=== PATIENT | female | born 1955 | race Caucasian/White ===

== ENCOUNTER 2021-04-20 16:58 | Emergency (ER) | payer OTHER, MEDICARE ==
[~2021-04-20] VITALS: Ht 165 cm; Wt 90.7 kg
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
[2021-04-20] MEDS ORDERED: HOLD METFORMIN - RECEIVED CONTRAST 20 ML VIAL IV SCH (17:30)
[2021-04-20] MEDS ORDERED: NS IV 1000 ML 1,000 ML IV SCH (17:30)
[2021-04-20] MEDS ORDERED: IOHEXOL 350 MG/ML 100 ML (OMNIPAQUE 350) VIAL IV ONE (17:30)
[2021-04-20] MEDS ORDERED: NS 100 ML (IVPB) BAG IV ONE (17:30)
[2021-04-20] MEDS ORDERED: CATHETER FLUSH 10 ML SYR IV PRN (17:30)
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
[2021-04-20] MEDS ORDERED: RT-ALBUTEROL SULF 2.5 MG/3 ML PRE-MIX VIAL INH ONE (18:15)
[2021-04-20 18:27] LABS: BASOPHILS # (AUTO) 0.1 10^3/uL (0.0-0.1); BASOPHILS % (AUTO) 1 % (0-10); EOSINOPHILS # (AUTO) 0.1 10^3/uL (0.0-0.3); EOSINOPHILS % (AUTO) 2 % (0-10); HEMATOCRIT 52 % (35-52); HEMOGLOBIN 16.1 g/dL (11.5-16.0); LYMPHOCYTES # (AUTO) 1.1 10^3/uL (1.0-4.0); LYMPHOCYTES % (AUTO) 13 % (12-44); MEAN CORPUSCULAR HEMOGLOBIN 28 pg (25-34); MEAN CORPUSCULAR HGB CONC 31 g/dL (32-36); MEAN CORPUSCULAR VOLUME 89 fL (80-99); MONOCYTES # (AUTO) 0.6 10^3/uL (0.0-1.0); MONOCYTES % (AUTO) 7 % (0-12); NEUTROPHILS # (AUTO) 6.4 10^3/uL (1.8-7.8); NEUTROPHILS % (AUTO) 78 % (42-75); PLATELET COUNT 236 10^3/uL (130-400); WHITE BLOOD COUNT 8.3 10^3/uL (4.3-11.0)
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
[2021-04-20] MEDS ORDERED: RX-CYCLOBENZAPRINE 10 MG (FLEXERIL) TAB PPK#3 PO STA (18:44)
[2021-04-20] MEDS ORDERED: METH-732 PO (18:45)
[2021-04-20 18:47] LABS: CHLORIDE 101 MMOL/L (98-107); POTASSIUM 4.6 MMOL/L (3.6-5.0); SODIUM 138 MMOL/L (135-145)
[2021-04-20 18:48] LABS: CALCIUM 9.1 MG/DL (8.5-10.1)
[2021-04-20 18:49] LABS: GLUCOSE 98 MG/DL (70-105)
[2021-04-20 18:50] LABS: CARBON DIOXIDE 24 MMOL/L (21-32)
[2021-04-20 18:52] LABS: CREATININE SERUM 0.87 MG/DL (0.60-1.30); GFR ESTIMATED > 60
[2021-04-20 18:53] LABS: BUN/CREATININE RATIO 18
[2021-04-20 19:07] VITALS: BP 173/91
== END 2021-04-20 19:07 | disposition home or self-care (01) ==
LOC: ER 17:00
DX: M25.511 Pain in right shoulder (principal); R10.12 Left upper quadrant pain; J44.9 Chronic obstructive pulmonary disease, unspecified
CPT/HCPCS: 36415; 71260; 72128; 73030; 74177; 80048; 85025; 94640